=== PATIENT | female | born 1980 | race Caucasian/White ===

== ENCOUNTER 2020-06-11 17:32 | Inpatient (IN) | payer OTHER, SELFPAY ==
[2020-06-11] VITALS (65 sets, daily range): BP systolic 84–151; BP diastolic 41–84; PULSE 70–145; O2SAT 94–100; BMI 24.0
[2020-06-11] MEDS: DINOPROSTONE 10 MG VAG INSERT VAGINAL (18:53)
[2020-06-11 18:55] LABS: Basophils Percent Auto 0.1 % (0.2-1.2); Eosinophils Percent Auto 0.3 % (0-4.4); Hematocrit 37.8 % (37.0-47.0); Hemoglobin 12.7 g/dL (12.0-15.0); Immature Granulocyte Absolute 0.07 K/mm3 (0.00-0.031); Immature Granulocyte Percent A 0.7 % (0-0.5); Lymphocytes Percent Auto 25.6 % (18.3-44.2); Mean Corpuscular HGB Conc 33.6 g/dl (32-36); Mean Corpuscular Hemoglobin 32.9 pg (26-34); Mean Corpuscular Volume 97.9 fl (80-100); Mean Platelet Volume 10.9 fl (7.4-10.4); Monocytes Absolute Auto 0.8 K/mm3 (0.1-0.6); Monocytes Percent Auto 7.4 % (2.6-8.5); Neutrophils Percent Auto 65.9 % (45.5-73.1); Platelet Count Result 185 k/mm3 (150-375); Red Blood Count 3.86 M/mm3 (4.2-5.4); Red Cell Distribution Width 13.1 % (11.5-14.5); White Blood Count 10.6 K/mm3 (4.5-10.0)
[2020-06-11] MEDS: LACTATED RINGERS 1,000 ML 125 ML IV CONT ×2 (19:30→23:32)
[2020-06-11] MEDS: AMPICILLIN 2 GM/NS 100 ML 2 GM/100 ML BAG IVPB (19:30)
--- NOTE | 2020-06-11 20:43 | WPDANESEPPF ---
Anes - Initial Pre Proc Eval Procedure: labor epidural Date/Time: 06/11/20 20:43 Surgeon: Siva Chau MD Pre Op Diagnosis: labor pain Pre Op Diagnosis: Induction of Labor Patient Data Age: 39 Gender: F Height: Weight: Last Vital Signs Pulse 95 06/11/20 20:16 BP 110/84 06/11/20 20:16 Allergies Allergy/AdvReac Type Severity Reaction Status Date / Time Sulfa (Sulfonamide Allergy Rash Verified 05/10/20 14:27 Antibiotics) Home Medications Medication Instructions Recorded Confirmed Type PNV cmb#95-ferrous fumarate-FA 1 tablet PO DAILY 05/10/20 05/10/20 History [] levothyroxine 50 mcg PO DAILY 05/10/20 05/10/20 History Laboratory Tests 06/11/20 06/11/20 06/11/20 18:36 18:36 18:36 WBC 10.6 K/mm3 H K/mm3 (4.5-10.0) RBC 3.86 M/mm3 L M/mm3 (4.2-5.4) Hgb 12.7 g/dL g/dL (12.0-15.0) Hct 37.8 % % (37.0-47.0) MCV 97.9 fl fl (80-100) MCH 32.9 pg pg (26-34) MCHC 33.6 g/dl g/dl (32-36) RDW 13.1 % % (11.5-14.5) Plt Count 185 k/mm3 k/mm3 (150-375) MPV 10.9 fl H fl (7.4-10.4) Immature Gran % (Auto) 0.7 % H % (0-0.5) Neut % (Auto) 65.9 % % (45.5-73.1) Lymph % (Auto) 25.6 % % (18.3-44.2) [place] % (Auto) 7.4 % % (2.6-8.5) Eos % (Auto) 0.3 % % (0-4.4) Baso % (Auto) 0.1 % L % (0.2-1.2) Lymph # (Auto) 2.70 K/mm3 K/mm3 (0.9-3.2) [place] # (Auto) 0.8 K/mm3 H K/mm3 (0.1-0.6) Eos # (Auto) 0.0 K/mm3 K/mm3 (0-0.3) Baso # (Auto) 0.0 K/mm3 K/mm3 (0.0-0.1) Abs Immat Gran (auto) 0.07 K/mm3 H K/mm3 (0.00-0.031) Absolute Neuts (auto) 7.0 K/mm3 H K/mm3 (1.3-6.7) Absolute Nucleated RBC 0.0 K/mm3 K/mm3 (0.0-0.012) Nucleated RBC % 0.0 % % (0.0-0.2) RPR Pending Blood Type A Positive Antibody Screen Negative Patient hx anesthesia problems: none Family hx anesthesia problems: none [facility] Family History Family History (Updated 05/10/20 @ 14:30 by Joshua Wilson RN) Sibling Non Hodgkin's lymphoma Social History Social History Substance use: never Gender identity (if verbalized by the patient): Female Spiritual care concerns: No Anes - Eval Final PreProcedure Day of Procedure 06/11/20 20:43 Informed Consent: The patient's anesthetic plan and its attendant risks and benefits were discussed with the patient/family/POA. Questions were solicited and answers provided to the satisfaction of the patient/family/POA.
--- NOTE | 2020-06-11 23:15 | LDADM ---
This patient, Neva Price, was admitted to Labor/Delivery/Recovery 102 on 06/11/20 at 17:32. Plans for labor, pain management and were discussed with patient. Patient/family oriented to hospital policies and general routines including ID bracelet, bed and alarms, visiting hours, pain management, procedures, bathroom and other care routines, personal items, smoking policy, room service/diet and guest tray routines, infant security routines, and visiting hours. Patient/Family are encouraged to report perceived risks to care and to ask questions if they do not understand what they are told or what they should do. See OBIX for further documentation.
[2020-06-11] MEDS: AMPICILLIN 1 GM/NS 50 ML 1 GM/50 ML BAG IVPB (23:32)
[2020-06-12] VITALS (155 sets, daily range): BP systolic 89–136; BP diastolic 47–79; PULSE 67–130; RESP 16–20; TEMP 36.2–37.6; O2SAT 92–100
[2020-06-12] MEDS: AMPICILLIN 1 GM/NS 50 ML 1 GM/50 ML BAG IVPB (03:29)
--- NOTE | 2020-06-12 07:18 | PM.OBPNLAB ---
Pain Control Date/time seen: 06/12/20 07:18 Pain control: tolerating well Comments: Called to patient room to confirm presenting part. Pt resting comfortably in bed Pelvic Exam Dilation (cm): 4 Amniotic membrane status: Intact Contractions Monitor mode: External Contraction pattern: Regular Status status: Category l Assessment and Plan Assessment: active labor Plan: other Comments: BSUS performed. Fetus is in the complete Breech position. Dr. Chau updated. Final plan per Dr. Chau
[2020-06-12] MEDS: LACTATED RINGERS 1,000 ML 125 ML IV CONT (07:34)
[2020-06-12] MEDS: ceFAZolin 2 GM/D5W 50 ML 2 GM/50 ML BAG IVPB (07:38)
--- NOTE | 2020-06-12 08:16 | PM.IMHP ---
H&P: HPI History of Present Illness Date/Time: 06/12/20 08:16 Chief complaint: Induction of Labor Narrative: 39 year old G1 at 40 4/7 weeks here for induction of labor. Cervidil last evening was withdrawn after uterine tachysystole. Received epidural and is comfortable. She achieved 4cm dilation and digital exam suggested nonvertex presentation. Bedside ultrasound confirmed breech presentation. GBS positive, receiving ampicillin. Review of Systems Review of Systems: All systems reviewed & are unremarkable except as noted in HPI and below PMFSH Past Medical History Medical History Hypothyroidism Surgical History Surgical History H/O LEEP Family History Family History Sibling Non Hodgkin's lymphoma Social History Social History Smoking status: Former smoker Tobacco type: cigarettes Second hand tobacco smoke exposure: No Substance use: never Gender identity (if verbalized by the patient): Female Spiritual care concerns: No Meds Home Medications and Allergies Home Medications Medication Instructions Recorded Confirmed Type PNV cmb#95-ferrous fumarate-FA 1 tablet PO DAILY 05/10/20 05/10/20 History [] levothyroxine 50 mcg PO DAILY 05/10/20 05/10/20 History Allergies Allergy/AdvReac Type Severity Reaction Status Date / Time Sulfa (Sulfonamide Allergy Rash Verified 05/10/20 14:27 Antibiotics) Vital Signs Vital Signs - 24 hr 06/11/20 19:02 06/11/20 19:16 06/11/20 19:31 Temperature Pulse Rate 97 127 H 96 Blood Pressure 118/77 115/67 114/73 Pulse Oximetry 06/11/20 19:46 06/11/20 20:01 06/11/20 20:16 Temperature Pulse Rate 95 94 95 Blood Pressure 117/71 121/76 110/84 Pulse Oximetry 06/11/20 20:57 06/11/20 20:58 06/11/20 21:00 Temperature Pulse Rate 112 H 110 H Blood Pressure 151/81 H 141/83 H Pulse Oximetry 99 06/11/20 21:01 06/11/20 21:02 06/11/20 21:03 Temperature Pulse Rate 108 H 102 H Blood Pressure 128/71 131/78 Pulse Oximetry 99 06/11/20 21:06 06/11/20 21:07 06/11/20 21:09 Temperature Pulse Rate 95 80 Blood Pressure 135/70 115/70 Pulse Oximetry 99 06/11/20 21:11 06/11/20 21:12 06/11/20 21:13 Temperature Pulse Rate 93 97 Blood Pressure 106/73 121/71 Pulse Oximetry 99 06/11/20 21:16 06/11/20 21:18 06/11/20 21:21 Temperature Pulse Rate 94 89 79 Blood Pressure 102/67 110/63 107/59 L Pulse Oximetry 99 99 06/11/20 21:23 06/11/20 21:26 06/11/20 21:28 Temperature Pulse Rate 90 87 88 Blood Pressure 115/75 112/74 103/54 L Pulse Oximetry 99 06/11/20 21:31 06/11/20 21:33 06/11/20 21:36 Temperature Pulse Rate 91 87 Blood Pressure 116/75 116/70 Pulse Oximetry 99 98 06/11/20 21:37 06/11/20 21:39 06/11/20 21:41 Temperature Pulse Rate 82 92 84 Blood Pressure 115/65 104/70 111/62 Pulse Oximetry 98 06/11/20 21:43 06/11/20 21:46 06/11/20 21:49 Temperature Pulse Rate 87 86 89 Blood Pressure 109/76 111/70 105/63 Pulse Oximetry 96 06/11/20 21:51 06/11/20 21:53 06/11/20 21:56 Temperature Pulse Rate 85 93 89 Blood Pressure 105/55 L 105/55 L 91/41 L Pulse Oximetry 99 99 06/11/20 21:58 06/11/20 22:01 06/11/20 22:03 Temperature Pulse Rate 84 81 89 Blood Pressure 112/70 106/64 107/61 Pulse Oximetry 98 06/11/20 22:06 06/11/20 22:11 06/11/20 22:16 Temperature Pulse Rate 145 H Blood Pressure 84/52 L Pulse Oximetry 99 98 98 06/11/20 22:21 06/11/20 22:24 06/11/20 22:26 Temperature Pulse Rate 85 Blood Pressure 95/61 L Pulse Oximetry 99 99 06/11/20 22:31 06/11/20 22:36 06/11/20 22:41 Temperature Pulse Rate 78 Blood Pressure 100/53 L Pulse Oximetry 98 97 97 06/11/20 2
--- NOTE | 2020-06-12 09:05 | P.PCNOB_ITS ---
OB - Delivery Note Procedure Delivery date: 06/12/20 Procedure: Procedures Operation Date: 06/12/20 08:30 Actual Procedures Side Surgeon p Section Siva Chau MD Delivery monitor: external FHT and external uterine Route of delivery: Specimen: Yes (cord blood) Estimated blood loss (mL): 625 Anesthesia type: Epidural Disposition: PACU Complications: None Narrative: The patient was taken to the operating room where she was prepared and draped in the usual sterile fashion in dorsal supine position with a leftward tilt. She received cefazolin preoperatively. Spinal anesthesia was found to be adequate. A Pfannenstiel skin incision was made and carried through to the underlying layer of the fascia. The fascia was incised in the midline and the incision was extended laterally. The fascia was dissected free of the underlying rectus muscles. The rectus muscles were in the midline. The peritoneum was identified, tented up and entered sharply. The peritoneal incision was extended superiorly and inferiorly with good visualization of the bladder. The bladder blade was placed. The vesicouterine peritoneum was identified, tented up and entered sharply. The incision was extended laterally and the bladder flap was developed. The bladder blade was replaced. The uterus was then incised sharply in a transverse fashion along the lower uterine segment. The incision was extended laterally. The infant's feet were delivered atraumatically to the sterile field, followed by the body to the level of the scapulae. The arms were swept across the chest and delivered. The head was gently flexed and easily delivered. A loose nuchal cord was reduced. The nose and mouth were bulb suctioned. After a delay, the cord was clamped and cut. The was handed off the field. Cord blood was collected. The placenta was removed manually and was passed off the field. The uterus was exteriorized and cleared of all clots and debris. The uterine incision was reapproximated using 0 Monocryl in a running, locked fashion. A second imbricating layer of the same suture was placed. Excellent hemostasis resulted as did excellent reapproximation of the normal anatomy. The uterus was returned the abdomen. The pelvis was irrigated copiously with warmed normal saline. Rigorous hemostasis was assured. The fascial layer was reapproximated using 0 Vicryl in a running fashion. The skin was closed with a running, subcuticular stitch of 4 0 Vicryl. Dermaflex was applied externally. Sponge, lap, needle and instrument counts were correct. The patient was taken to the recovery room in stable condition. The went to the nursery in stable condition. I was present and scrubbed the entire procedure. [place] Baby Date of : 06/12/20 Time of : 08:45 Weeks of gestation at delivery: 40 Infant gender: Male Weight (pounds): 8 presentation: breech (double footling breech) Placenta delivery description: Manual Removal and Normal Configuration cord vessel description: 3 Vessels and Nuchal Cord score one minute: 8 score five minutes: 9
--- NOTE | 2020-06-12 09:09 | PM.OBDSVD ---
DS: Admitting Diagnosis Admitting Diagnosis Admitting Diagnosis: IUP at 40 4/7 weeks DS: Discharge Diagnosis Discharge Diagnosis (1) Status post primary low transverse section: Code(s): Z98.891 - History of uterine scar from previous surgery Status: Acute (2) GBS (group B Streptococcus carrier), +RV culture, currently : Code(s): O99.820 - Streptococcus B carrier state complicating Status: Acute (3) Breech presentation: Code(s): O32.1XX0 - Maternal care for breech presentation, not applicable or unspecified Status: Acute (4) Term : Code(s): Z34.90 - Encounter for supervision of normal , unspecified, unspecified trimester Status: Acute OB - DS: Summary OB Procedures : None OB Procedures Intrapartum: OB Procedures: : None Peripartum Data Procedures: Procedures Operation Date: 06/12/20 08:30 Actual Procedures Side Surgeon p Section Siva Chau MD Time Spent with Patient Time attestation: Total time spent providing and/or coordinating discharge services: DS: Data Data Completed and Pending Labs on day of discharge: Labs from last 24 hours 06/11/20 06/11/20 06/11/20 18:36 18:36 18:36 WBC 10.6 H RBC 3.86 L Hgb 12.7 Hct 37.8 MCV 97.9 MCH 32.9 MCHC 33.6 RDW 13.1 Plt Count 185 MPV 10.9 H Immature Gran % (Auto) 0.7 H Neut % (Auto) 65.9 Lymph % (Auto) 25.6 [place] % (Auto) 7.4 Eos % (Auto) 0.3 Baso % (Auto) 0.1 L Lymph # (Auto) 2.70 [place] # (Auto) 0.8 H Eos # (Auto) 0.0 Baso # (Auto) 0.0 Abs Immat Gran (auto) 0.07 H Absolute Neuts (auto) 7.0 H Absolute Nucleated RBC 0.0 Nucleated RBC % 0.0 RPR Pending Blood Type A Positive Antibody Screen Negative Discharge Plan Discharge Attending physician on discharge: Siva Chau Discharging Clinician: Siva Chau Patient Disposition: Home, Self-Care Activity: may shower, may drive after 2 weeks and pelvic rest Diet: regular Wound Care Instructions: incision open to air Discharge Instructions: Call or return if temperature above 100.4? F, increased abdominal pain, increased vaginal bleeding or any new problems. Education: Mom and Baby Guide and Preeclampsia Handout Given to: Mother Follow-Up: Call your delivering provider's office for an appointment to be seen in: 1 Week [facility]. Appointment Date/Time: June 17, 2020 at 8:00 am What to expect at your follow-up visit: Physical Assessment Call [phone] if you are unable to keep your appointment time. BREAST CARE: * Wear a snug supportive bra. * For engorgement discomfort: Breast Feeding: * Apply warm moist washcloths * Express milk as needed to relieve engorgement * Wear loose clothing Bottle Feeding: * May apply ice packs * For sore nipples: * Identify correct latch-on * Apply warm moist washcloths before and after nursing * Air dry nipples after nursing * May apply Lansinoh cream to nipples ABDOMINAL INCISION: (if applicable) * Allow incision to air dry * Do NOT use lotions for powders on your incision * When showering, allow soap and water to run over the incision, but do not wash incision EPISIOTOMY/PERINEAL CARE: * Until bleeding stops, use your miles bottle after urinating * Change your pad frequently throughout the day * No tub baths until seen by your physician - You may shower ACTIVITY: * Rest as much as possible. * Do not exercise or lift anything heavier than your baby (such as laundry or other children.) * Avoid stairs or driving as much as possible. * Do not put anything into the vagina. No douching, tampons, or sexual activity until seen by physician. NOTIFY PHYSICIAN IF YOU
[2020-06-12 09:44] LABS: Rapid Plasma Reagin Non-Reactive (NonReactive)
--- NOTE | 2020-06-12 13:00 | PC.NURSE ---
Consulted with patient, Mother reports she attempted to breast after delivery, was eager and unable to latch. Observed mother has had breast augmentation bilat. Reviewed infant feeding cues, frequencies, duration of feedings, feeding elimination flow sheet, and signs of adequate intake. Demonstrated stimulation techniques to wake infant for feeding. Assisted with infant to breast. Reviewed positioning/alignment in cross cradle, holding breast in U hold and guided asymmetrical latch on. Several attempts made, was able to latch correctly. Offered and explained the nipple shield, mother is willing to attempt with shield. Nipple shield provided to mother due to ineffective latch. Discussed nipple shield precautions and possible complications. Instructions given on application and cleaning of shield. Patient able to return demonstration on proper application of shield. Discussed the need to initiate pumping if continues to nurse with the shield. Patient verbalizes understanding. With shield in place, was able to latch to shield with no suckling noted. Attempt for 15-20 minutes with no successful effective feeding. Feeding options discussed, parents will supplement 15mls formula at this time.
[2020-06-12] MEDS: LORATADINE 10 MG TABLET PO (13:06)
[2020-06-12] MEDS: KETOROLAC 30 MG/ML VIAL (*BKC) (13:14)
--- NOTE | 2020-06-12 15:15 | PC.NURSE ---
Breast pump provided due to ineffective feeding/ nipple shield use. Instructions given on breast pump care and usage, pumping schedule, nipple care, and collection and storage of breast milk. Encouraged [id number], breast massage and manual expression to stimulate supply. Assessed patient for correct flange size, placement and draw. Patient verbalizes and demonstrates understanding of instructions.
[2020-06-12] MEDS: SIMETHICONE 80 MG TAB.CHEW PO (18:10)
[2020-06-12] MEDS: DOCUSATE SODIUM 100 MG CAPSULE PO (18:10)
[2020-06-12] MEDS: BENZOCAINE 20% AER SPR (*SP) 56 GM CAN 1 SPRAY (18:11)
[2020-06-12] MEDS: DIBUCAINE 1% OINTMENT 30 GM TUBE 1 APPLIC (18:11)
[2020-06-13] MEDS: IBUPROFEN 600 MG TABLET PO ×4 (00:02→22:42)
[2020-06-13 03:45] VITALS: BP 106/61; PULSE 97; RESP 14; TEMP 36.7; O2SAT 96
[2020-06-13 05:15] LABS: Basophils Percent Auto 0.2 % (0.2-1.2); Eosinophils Percent Auto 0.2 % (0-4.4); Hematocrit 29.2 % (37.0-47.0); Hemoglobin 9.7 g/dL (12.0-15.0); Immature Granulocyte Absolute 0.04 K/mm3 (0.00-0.031); Immature Granulocyte Percent A 0.3 % (0-0.5); Lymphocytes Percent Auto 19.1 % (18.3-44.2); Mean Corpuscular HGB Conc 33.2 g/dl (32-36); Mean Corpuscular Hemoglobin 33.1 pg (26-34); Mean Corpuscular Volume 99.7 fl (80-100); Mean Platelet Volume 11.1 fl (7.4-10.4); Monocytes Absolute Auto 0.6 K/mm3 (0.1-0.6); Monocytes Percent Auto 5.2 % (2.6-8.5); Platelet Count Result 139 k/mm3 (150-375); Red Blood Count 2.93 M/mm3 (4.2-5.4); Red Cell Distribution Width 13.2 % (11.5-14.5); White Blood Count 12.1 K/mm3 (4.5-10.0)
[2020-06-13] MEDS: POLYSACCHARIDE IRON COMPLEX 150 MG CAPSULE PO ×2 (07:32→16:50)
[2020-06-13] MEDS: DOCUSATE SODIUM 100 MG CAPSULE PO ×2 (07:32→16:50)
[2020-06-13] MEDS: MULTIVIT/MIN/PREN/FOL AC/IRON TABLET 1 TAB PO (07:32)
[2020-06-13 08:10] VITALS: BP 102/65; PULSE 87; RESP 16; TEMP 36.4; O2SAT 97
--- NOTE | 2020-06-13 08:33 | WPDANLDPN2 ---
Anes-Prog Note L&D Date/Time: 06/13/20 08:33 Comfortable throughout: section Neuraxial method: epidural Epidural/Spinal procedure site: clean & non-tender Neuro status: Neuro function grossly intact. Cardiovascular status: normal Respiratory status: normal Airway patency: baseline Mental status: baseline Post-Op hydration status: normal Vital Signs: Last Vital Signs Temp 36.7 C 06/13/20 03:45 Pulse 97 06/13/20 03:45 Resp 14 06/13/20 03:45 BP 106/61 06/13/20 03:45 Pulse Ox 96 06/13/20 03:45 I/O: Intake & Output 06/12/20 06/13/20 06/13/20 23:59 07:59 15:59 Output Total 750 700 Balance -750 -700 Post-procedural complaints: none Patient feedback: Patient satisfied with anesthetic care.
--- NOTE | 2020-06-13 08:34 | WPDANLDNPN2 ---
Anes-Prog Note L&D-Neuraxial Date/Time: 06/13/20 08:34 Neuraxial medications: epidural PF morphine Opiod-related complaints: none Patient feedback: Patient satisfied with post-operative pain management.
--- NOTE | 2020-06-13 13:00 | PC.NURSE ---
Consult with pt., mother independently puts infant to breast using the nipple shield. is more awake and eagerly latching, nursing up to 15 minutes. Mother will stimulate to keep awake and nursing. FOB at bedside providing good support as assistance where needed. FOB will supplement after breastfeedings and mother is pumping without difficulties or discomfort.
[2020-06-13] MEDS: TETANUS,DIPHTHERIA,AC PERTUSSIS ADULT (0.5 ML) BOOSTRIX IM (16:49)
--- NOTE | 2020-06-13 17:47 | P.PNOB_ITS ---
OB - PN: Subj Subjective Date/time seen: 06/13/20 17:47 Narrative: Pain OK. Tolerating diet. Tearful intermittently, but says she does not feel depressed. Would like circumcision for son. OB - PN: Obj Data Labs CBC & Chem 7: 06/13/20 03:46 Labs: Laboratory Results - last 24 hr 06/13/20 03:46 WBC 12.1 H RBC 2.93 L Hgb 9.7 L D Hct 29.2 L MCV 99.7 MCH 33.1 MCHC 33.2 RDW 13.2 Plt Count 139 L MPV 11.1 H Immature Gran % (Auto) 0.3 Neut % (Auto) 75.0 H Lymph % (Auto) 19.1 [place] % (Auto) 5.2 Eos % (Auto) 0.2 Baso % (Auto) 0.2 Lymph # (Auto) 2.30 [place] # (Auto) 0.6 Eos # (Auto) 0.0 Baso # (Auto) 0.0 Abs Immat Gran (auto) 0.04 H Absolute Neuts (auto) 9.0 H Absolute Nucleated RBC 0.0 Nucleated RBC % 0.0 OB - PN A/P Plan Comments: A: POD#1, doing well. P: Routine care. Reviewed circumcision. Exam Narrative: Exam Narrative: AVSS I/O OK ABD soft, nontender, fundus firm. Incision c/d/i. EXT nontender
[2020-06-13 19:50] VITALS: BP 93/60; PULSE 88; RESP 16; TEMP 36.5; O2SAT 99
[2020-06-14] MEDS: IBUPROFEN 600 MG TABLET PO ×4 (04:55→23:08)
[2020-06-14 08:00] VITALS: BP 103/65; PULSE 78; RESP 16; TEMP 36.8; O2SAT 100
--- NOTE | 2020-06-14 08:59 | PM.OBPNVD ---
OB - PN: Subj Subjective Date/time seen: 06/14/20 08:59 Patient comments: no complaints, pain well controlled, tolerating diet and flatus present OB - PN: Obj Data Labs CBC & Chem 7: 06/13/20 03:46 OB - PN A/P Plan day: 1 Plan: routine care Comments: patient doing well H/H stable afebrile, VSS incision C/D/I velez removed, voiding spontaneously continue routine post op care Time Spent With Patient Time: Total time spent is greater than 50% in coordination of care (as documented) at patient's floor/unit and/or counseling patient: Time with patient: less than 15 minutes Review of Systems Constitutional: Constitutional: Reports no additional constitutional complaints Cardiovascular: Cardiovascular: Reports no additional cardiovascular complaints Respiratory: Respiratory: Reports no additional respiratory complaints Gastrointestinal: Gastrointestinal: Reports no additional gastrointestinal complaints Genitourinary: Genitourinary: Reports no additional female genitourinary complaints Exam Const: General: comfortable and no acute distress Resp: Effort & Inspection: normal respiratory effort Auscultation: clear to auscultation bilaterally Cardio: Rate: regular rate GI: GI Palp: Yes Soft to palpation, Yes Tenderness to palpation present (GI) (around incision ) and No Guarding due to palpation present (GI) Auscultation: normal bowel sounds Other: incision C/D/I, covered with Dermabond Psych: Appearance: grossly normal Mental Status: mental status grossly normal Affect: normal affect
--- NOTE | 2020-06-14 10:34 | WPDANLDPN2 ---
Anes-Prog Note L&D Date/Time: 06/14/20 10:34 Comfortable throughout: section Neuraxial method: epidural Epidural/Spinal procedure site: clean & non-tender Neuro status: Neuro function grossly intact. Cardiovascular status: normal Respiratory status: normal Airway patency: baseline Mental status: baseline Post-Op hydration status: normal Vital Signs: Last Vital Signs Temp 36.8 C 06/14/20 08:00 Pulse 78 06/14/20 08:00 Resp 16 06/14/20 08:00 BP 103/65 06/14/20 08:00 Pulse Ox 100 06/14/20 08:00 Post-procedural complaints: none Patient feedback: Patient satisfied with anesthetic care.
--- NOTE | 2020-06-14 10:35 | WPDANLDNPN2 ---
Anes-Prog Note L&D-Neuraxial Date/Time: 06/14/20 10:35 Neuraxial medications: epidural PF morphine Opiod-related complaints: none Patient feedback: Patient satisfied with post-operative pain management.
[2020-06-14] MEDS: SIMETHICONE 80 MG TAB.CHEW PO (10:41)
[2020-06-14] MEDS: MULTIVIT/MIN/PREN/FOL AC/IRON TABLET 1 TAB PO (10:41)
[2020-06-14] MEDS: DOCUSATE SODIUM 100 MG CAPSULE PO ×2 (10:41→17:15)
[2020-06-14] MEDS: POLYSACCHARIDE IRON COMPLEX 150 MG CAPSULE PO ×2 (10:42→17:15)
--- NOTE | 2020-06-14 14:35 | PC.NURSE ---
Consult with pt., mother reports infant is more awake and eagerly bottle feeding. She is concerned is not latching to breast as eagerly, infant will not latch and cry pulling off and will attempt to latch. Suggested mother give 5mls of bottle, then transition infant to breast with nipple shield in place to see if this will entice to latch and continue nursing. Mother is pumping after each feeding attempt and has small amounts to give . Mother plans to continue with attempting to breast each feeding, supplementing and then pumping. Mother states she may switch to pumping and bottle feeding, if does not become more eager at breast. Suggested to give infant a few days to be more awake and eager once her milk is in. Mother is feeding as required and waking to feed if needed. Infant is currently meeting outcomes for weight, output, jaundice and feeding frequencies. Mother states she feels confident to continue current feeding plan at home. Reviewed transition to breast milk, signs of adequate intake, and engorgement/relief. Instructed to call ICP if intake/output less than required. Reviewed regular medications mother is taking. Information provided per Ro. Reviewed community resources on the [facility] website and in the Mom/Baby guide. Information on outpatient services provided. Mother has no further questions at this time.
[2020-06-14 19:00] VITALS: BP 115/56; PULSE 89; RESP 16; TEMP 36.5; O2SAT 98
[2020-06-15] MEDS: IBUPROFEN 600 MG TABLET PO (05:00)
--- NOTE | 2020-06-15 08:03 | P.DS_ITS ---
DS: Admitting Diagnosis Admitting Diagnosis Admitting Diagnosis: Induction of Labor OB - DS: Summary OB Procedures : None OB Procedures Intrapartum: OB Procedures: : None Peripartum Data Infant Delivery Method: Section Procedures: Procedures Operation Date: 06/12/20 08:30 Actual Procedures Side Surgeon p Section Siva Chau MD complications: none Status at Discharge Functional status at discharge: independent ambulation Overall status at discharge: patient is progressing back to baseline Time Spent with Patient Time attestation: Total time spent providing and/or coordinating discharge services: Time spent: Less than 30 minutes Exam Const: General: comfortable and no acute distress Resp: Effort & Inspection: normal respiratory effort Auscultation: clear to auscultation bilaterally Cardio: Rate: regular rate GI: Inspection: non-distended GI Palp: Yes Soft to palpation, No Firmness to palpation present (GI), Yes Tenderness to palpation present (GI) (mild tenderness over incision ) and No Guarding due to palpation present (GI) Auscultation: normal bowel sounds Psych: Appearance: grossly normal Mental Status: mental status grossly normal Discharge Plan Discharge Attending physician on discharge: Siva Chau Discharging Clinician: Siva Chau Patient Disposition: Home, Self-Care Activity: may shower, may drive after 2 weeks and pelvic rest Diet: regular Wound Care Instructions: incision open to air Discharge Instructions: Call or return if temperature above 100.4? F, increased abdominal pain, increased vaginal bleeding or any new problems. Stand Alone Forms: General Discharge Information Follow-up/Referrals: Siva Chau MD [Physician] - (4 weeks) Discharge Medications: New hydrocodone-acetaminophen [[place]] 5-325 mg tablet 1 - 2 tablet PO Q6H PRN (Reason: pain) Qty: 30 RF: 0 ibuprofen 600 mg tablet 600 mg PO Q6H PRN (Reason: cramps) Qty: 30 RF: 0 ferrous sulfate 325 mg (65 mg iron) tablet 325 mg PO DAILY Qty: 30 RF: 0 polysaccharide iron complex 150 mg iron Capsule 150 mg PO BIDWM Qty: 60 RF: 0 Wbx-A-Deoftv Cream 1 applic topical PRN PRN (Reason: Sore Nipples) Qty: 1 RF: 0 Continued levothyroxine 50 mcg Tablet 50 mcg PO DAILY RF: 0 PNV cmb#95-ferrous fumarate-FA [] 28 mg iron- 800 mcg Tablet 1 tablet PO DAILY RF: 0 Date of admission: 06/11/20 17:32 Primary Care Provider: PHYSICIAN,[employer] Admitting Provider: Siva Chau Attending physician on admission: Siva Chau
[2020-06-15] MEDS: DOCUSATE SODIUM 100 MG CAPSULE PO (08:04)
[2020-06-15] MEDS: POLYSACCHARIDE IRON COMPLEX 150 MG CAPSULE PO (08:04)
[2020-06-15] MEDS: MULTIVIT/MIN/PREN/FOL AC/IRON TABLET 1 TAB PO (08:04)
[2020-06-15 08:55] VITALS: BP 122/61; PULSE 95; RESP 18; TEMP 36.2; O2SAT 98
--- NOTE | 2020-06-15 12:00 | PC.NURSE ---
Patient instructed to view the discharge video [facility], The First Two Weeks online. Patient was given the opportunity and encouraged to ask questions. Patient verbalized understanding of information shared and has been given the mother/baby guide for home reference.
[2020-06-17 08:08] VITALS: BP 122/67; PULSE 102; RESP 22; O2SAT 99
== END 2020-06-15 12:36 | disposition home or self-care (01) | DRG 788 ==
LOC: ANHLDR 06-12 09:10 → ANHOB2 06-12 13:59 → ANHLDR 06-17 11:26 → ANHOB2 06-17 11:26
PROVIDERS: Admitting Provider Obstetrics & Gynecology; Visit Provider Student in an Organized Health Care Education/Training Program
PROC: 10D00Z1 Extraction of Products of Conception, Low, Open Approach (ICD-10-PCS; CPT 59514; principal; 2020-06-12 08:30)
DX: O32.8XX0 Maternal care for other malpresentation of fetus, not applicable or unspecified (principal); Z37.0 Single live birth; Z3A.40 40 weeks gestation of pregnancy; O99.824 Streptococcus B carrier state complicating childbirth; O99.284 Endocrine, nutritional and metabolic diseases complicating childbirth; E03.9 Hypothyroidism, unspecified; O69.81X0 Labor and delivery complicated by cord around neck, without compression, not applicable or unspecified
CPT/HCPCS: 36415; 85025; 86592; 86850; 86900; 86901; 90715; A9270; J0131; J0290; J0690; J1885; J2175; J2274; J2370; J2405; J2590; J2795; J7120